=== PATIENT | male | born 1950 | race Caucasian/White ===

== ENCOUNTER 2023-08-23 17:29 | Inpatient (IN) | payer OTHER, MEDICAID ==
[2023-08-23 19:29] LABS: #Basophils 0.04 10x3/uL (0.0-0.2); %Basophils 0.7 % (0.0-1.0); %Lymphocytes 20.3 % (21.0-51.0); %Monocytes 10.6 % (0.0-10.0); %Neutrophils 66.1 % (42.0-75.0); Hematocrit 29.2 % (42.0-52.0); Hemoglobin 9.4 g/dL (14.0-18.0); Mean Corpuscular HGB CONC 32.2 g/dL (32.0-36.0); Mean Corpuscular Hemoglobin 30.9 pg (27.0-31.0); Mean Corpuscular Volume 96.1 fL (78.0-98.0); Mean Platelet Volume 10.6 fL (7.4-10.4); Platelet Count 182 10x3/uL (130-400); Red Blood Cell (RBC) Count 3.04 mill/uL (4.70-6.10)
[2023-08-23 19:42] LABS: ALT (SGPT) 7 U/L (8-55); AST (SGOT) 16 U/L (5-34); Albumin 4.1 g/dL (3.4-4.8); Alkaline Phosphatase 69 U/L (40-110); Anion Gap 19 mmol/L (10-20); BUN (Urea Nitrogen) 66 mg/dL (8.4-25.7); Bilirubin, Total 0.5 mg/dL (0.2-1.2); Calc. Creatinine Clearance 0 mL/min (70-130); Calcium 9.7 mg/dL (7.8-10.44); Carbon Dioxide 10 mmol/L (23-31); Chloride 118 mmol/L (98-107); Estimated GFR 8; Globulin 3.5 g/dL (2.4-3.5); Glucose 107 mg/dL (83-110); Magnesium 2.2 mg/dL (1.6-2.6); Potassium 5.4 mmol/L (3.5-5.1); Protein, Total 7.6 g/dL (5.8-8.1); Sodium 142 mmol/L (136-145)
[2023-08-23 19:47] LABS: Troponin I 0.017 ng/mL (< 0.028)
[2023-08-23 20:07] LABS: Bacteria/HPF None Seen HPF (None Seen); Bilirubin Negative (Negative); Blood, Urine Negative (Negative); CAUTI Indications for Culture Acute Hematuria; Clarity Clear (Clear); Glucose, Urine (Dipstick) Normal (Negative); Ketone, Urine Negative (Negative); Leukocyte 75 Leu/uL (Negative); Nitrite Negative (Negative); Protein, Urine (Dipstick) 20 mg/dL (Neg-Trace); RBC/HPF 0-3 HPF (0-3); Squamous Epithelial 0-3 HPF (0-3); Urobilinogen Normal mg/dL (Less than 2)
[2023-08-23 20:23] LABS: Urine Culture Reflex No No
[2023-08-23] MEDS ORDERED: Acetaminophen 325 MG TAB PO PRN (20:29)
[2023-08-23] MEDS ORDERED: Ondansetron PF 4 MG/2 ML Vial IVP PRN (20:29)
[2023-08-23 22:16] VITALS: BMI 21.9
[2023-08-23] MEDS: Sodium Bicarbonate 150 MEQ in Dextrose 5% in Water 1,000 ML IV SCH (22:18)
[2023-08-23] MEDS: LOKELMA 10 GM PACKET PO SCH (22:18)
[2023-08-23] MEDS: Atorvastatin Calcium 20 MG TAB PO SCH (23:35)
[2023-08-23] MEDS: EPOETIN ALFA-EPBX (ESRD) 10,000 UNITS/ML VIAL SC SCH (23:35)
[2023-08-23 23:42] LABS: Base Excess -12.5 mEq/L (-2.0 to +3.0); Calcium, Ionized (venous) 1.16 mmol/L (1.16-1.32); Chloride (VBG) 114 mmol/L (98-106); Hematocrit-VBG 28 % (42.0-52.0); Hemoglobin (Hb) 9.6 g/dL (12.6-17.4); Potassium (VBG) 5.67 mmol/L (3.70-5.30); Sodium 141 mmol/L (133-146); pH (venous) 7.291 (7.32-7.43)
[2023-08-23 23:43] LABS: Actual Bicarbonate (HCO3v) 12.7 mEq/L (22-28)
[2023-08-24 04:10] LABS: #Basophils Less than 0.03 10x3/uL (0.0-0.2); %Basophils 0.5 % (0.0-1.0); %Eosinophils 2.3 % (0.0-10.0); %Monocytes 11.4 % (0.0-10.0); %Neutrophils 58.8 % (42.0-75.0); Hematocrit 25.4 % (42.0-52.0); Hemoglobin 8.4 g/dL (14.0-18.0); Mean Corpuscular HGB CONC 33.1 g/dL (32.0-36.0); Mean Corpuscular Hemoglobin 30.8 pg (27.0-31.0); Mean Platelet Volume 10.2 fL (7.4-10.4); Platelet Count 132 10x3/uL (130-400); RBC Distribution Width 14.7 % (11.5-14.5); Red Blood Cell (RBC) Count 2.73 mill/uL (4.70-6.10)
[2023-08-24 04:28] LABS: Phosphorus 5.1 mg/dL (2.3-4.7)
[2023-08-24 04:31] LABS: Anion Gap 18 mmol/L (10-20); BUN (Urea Nitrogen) 64 mg/dL (8.4-25.7); Calc. Creatinine Clearance 9 mL/min (70-130); Calcium 8.9 mg/dL (7.8-10.44); Carbon Dioxide 15 mmol/L (23-31); Chloride 115 mmol/L (98-107); Estimated GFR 8; Glucose 101 mg/dL (83-110); Iron 59 ug/dL (65-175); Iron Binding Capacity, Total 228 mcg/dL (261-462); Magnesium 2.1 mg/dL (1.6-2.6); Potassium 4.7 mmol/L (3.5-5.1); Sodium 143 mmol/L (136-145)
[2023-08-24 05:26] LABS: Creatinine, Urine 54.13 mg/dL (63-166)
[2023-08-24] MEDS: Amlodipine 5 MG TAB PO SCH (09:16)
[2023-08-25 05:59] LABS: Anion Gap 17 mmol/L (10-20); BUN (Urea Nitrogen) 53 mg/dL (8.4-25.7); Calc. Creatinine Clearance 10 mL/min (70-130); Carbon Dioxide 23 mmol/L (23-31); Chloride 107 mmol/L (98-107); Estimated GFR 9; Glucose 125 mg/dL (83-110); Magnesium 1.8 mg/dL (1.6-2.6); Potassium 3.8 mmol/L (3.5-5.1); Sodium 143 mmol/L (136-145)
[2023-08-25 06:19] LABS: #Basophils Less than 0.03 10x3/uL (0.0-0.2); %Basophils 0.3 % (0.0-1.0); %Lymphocytes 24.9 % (21.0-51.0); %Monocytes 10.9 % (0.0-10.0); %Neutrophils 62.4 % (42.0-75.0); Hematocrit 28.4 % (42.0-52.0); Hemoglobin 9.6 g/dL (14.0-18.0); Mean Corpuscular HGB CONC 33.8 g/dL (32.0-36.0); Mean Corpuscular Volume 91.6 fL (78.0-98.0); Mean Platelet Volume 10.1 fL (7.4-10.4); Platelet Count 139 10x3/uL (130-400); RBC Distribution Width 14.6 % (11.5-14.5)
[2023-08-25] MEDS: Tamsulosin HCl 0.4 MG CAP PO SCH (09:45)
[2023-08-25] MEDS: Sodium Chloride 0.45% 1,000 ML IV SCH (09:46)
[2023-08-26 05:36] LABS: #Basophils Less than 0.03 10x3/uL (0.0-0.2); %Basophils 0.2 % (0.0-1.0); %Eosinophils 1.2 % (0.0-10.0); %Lymphocytes 27.5 % (21.0-51.0); %Monocytes 10.1 % (0.0-10.0); %Neutrophils 60.7 % (42.0-75.0); Hematocrit 27.4 % (42.0-52.0); Hemoglobin 9.2 g/dL (14.0-18.0); Mean Corpuscular HGB CONC 33.6 g/dL (32.0-36.0); Mean Corpuscular Hemoglobin 31.1 pg (27.0-31.0); Mean Corpuscular Volume 92.6 fL (78.0-98.0); Mean Platelet Volume 9.7 fL (7.4-10.4); Platelet Count 131 10x3/uL (130-400); RBC Distribution Width 14.2 % (11.5-14.5); Red Blood Cell (RBC) Count 2.96 mill/uL (4.70-6.10)
[2023-08-26 06:10] LABS: Anion Gap 16 mmol/L (10-20); BUN (Urea Nitrogen) 44 mg/dL (8.4-25.7); Calc. Creatinine Clearance 12 mL/min (70-130); Calcium 8.2 mg/dL (7.8-10.44); Carbon Dioxide 20 mmol/L (23-31); Chloride 106 mmol/L (98-107); Estimated GFR 12; Glucose 112 mg/dL (83-110); Potassium 3.1 mmol/L (3.5-5.1); Sodium 139 mmol/L (136-145)
[2023-08-26] MEDS: Potassium Chloride 20 MEQ TAB PO SCH (09:24)
[2023-08-26] MEDS: Sodium Chloride 0.45% 1,000 ML IV SCH (12:14)
[2023-08-26 12:46] LABS: ANA Symphony (Qualitative) Negative (Negative); ANA Symphony (Quantitative) 0.3 Ratio (< 0.7 Negative); dsDNA IgG Antibody 1.7 IU/mL (<10 Negative)
[2023-08-27 04:28] LABS: #Basophils Less than 0.03 10x3/uL (0.0-0.2); %Basophils 0.2 % (0.0-1.0); %Eosinophils 2.9 % (0.0-10.0); %Lymphocytes 31.8 % (21.0-51.0); %Monocytes 12.5 % (0.0-10.0); %Neutrophils 52.2 % (42.0-75.0); Hematocrit 26.7 % (42.0-52.0); Hemoglobin 8.8 g/dL (14.0-18.0); Mean Corpuscular Hemoglobin 30.8 pg (27.0-31.0); Mean Corpuscular Volume 93.4 fL (78.0-98.0); Mean Platelet Volume 10.2 fL (7.4-10.4); Platelet Count 139 10x3/uL (130-400); RBC Distribution Width 14.1 % (11.5-14.5); Red Blood Cell (RBC) Count 2.86 mill/uL (4.70-6.10)
[2023-08-27 04:50] LABS: ALT (SGPT) 6 U/L (8-55); AST (SGOT) 16 U/L (5-34); Albumin 3.2 g/dL (3.4-4.8); Alkaline Phosphatase 61 U/L (40-110); Anion Gap 15 mmol/L (10-20); BUN (Urea Nitrogen) 46 mg/dL (8.4-25.7); Bilirubin, Total 0.3 mg/dL (0.2-1.2); Calc. Creatinine Clearance 14 mL/min (70-130); Calcium 8.4 mg/dL (7.8-10.44); Carbon Dioxide 18 mmol/L (23-31); Chloride 110 mmol/L (98-107); Estimated GFR 15; Globulin 3.5 g/dL (2.4-3.5); Glucose 94 mg/dL (83-110); Potassium 3.8 mmol/L (3.5-5.1); Protein, Total 6.7 g/dL (5.8-8.1); Sodium 139 mmol/L (136-145)
[2023-08-27] MEDS: Ergocalciferol 1.25 MG(50,000 UNITS) CAP PO SCH (10:44)
[2023-08-27] MEDS ORDERED: Guaifenesin DM 100-10/5 ML UDCUP PO PRN (11:09)
[2023-08-27] MEDS ORDERED: Ipratropium/Albuterol 3 ML NEB NEB PRN (11:09)
[2023-08-27] MEDS: Benzonatate 100 MG CAP PO SCH ×2 (12:47→15:30)
[2023-08-28 07:03] LABS: ALT (SGPT) 9 U/L (8-55); AST (SGOT) 20 U/L (5-34); Albumin 3.4 g/dL (3.4-4.8); Alkaline Phosphatase 56 U/L (40-110); Anion Gap 16 mmol/L (10-20); BUN (Urea Nitrogen) 45 mg/dL (8.4-25.7); Bilirubin, Total 0.4 mg/dL (0.2-1.2); Calc. Creatinine Clearance 16 mL/min (70-130); Carbon Dioxide 16 mmol/L (23-31); Chloride 112 mmol/L (98-107); Estimated GFR 18; Globulin 3.7 g/dL (2.4-3.5); Glucose 91 mg/dL (83-110); Potassium 4.3 mmol/L (3.5-5.1); Protein, Total 7.1 g/dL (5.8-8.1); Sodium 140 mmol/L (136-145)
[2023-08-28 08:43] LABS: #Basophils 0.03 10x3/uL (0.0-0.2); %Basophils 0.5 % (0.0-1.0); %Eosinophils 3.8 % (0.0-10.0); %Lymphocytes 26.8 % (21.0-51.0); %Monocytes 12.9 % (0.0-10.0); %Neutrophils 55.8 % (42.0-75.0); Hematocrit 28.6 % (42.0-52.0); Hemoglobin 9.3 g/dL (14.0-18.0); Mean Corpuscular HGB CONC 32.5 g/dL (32.0-36.0); Mean Corpuscular Hemoglobin 30.6 pg (27.0-31.0); Mean Corpuscular Volume 94.1 fL (78.0-98.0); Mean Platelet Volume 10.7 fL (7.4-10.4); Platelet Count 166 10x3/uL (130-400); RBC Distribution Width 14.2 % (11.5-14.5); Red Blood Cell (RBC) Count 3.04 mill/uL (4.70-6.10)
[2023-08-28] MEDS: Sodium Bicarbonate Tab 325 MG TAB PO SCH (08:55)
[2023-08-28] MEDS: Sodium Bicarbonate 150 MEQ in Dextrose 5% in Water 1,000 ML IV SCH (11:05)
[2023-08-29 07:26] LABS: Anion Gap 14 mmol/L (10-20); BUN (Urea Nitrogen) 46 mg/dL (8.4-25.7); Calc. Creatinine Clearance 18 mL/min (70-130); Carbon Dioxide 21 mmol/L (23-31); Chloride 107 mmol/L (98-107); Potassium 4.1 mmol/L (3.5-5.1); Sodium 138 mmol/L (136-145)
[2023-08-29 07:27] LABS: ALT (SGPT) 14 U/L (8-55); AST (SGOT) 25 U/L (5-34); Albumin 3.4 g/dL (3.4-4.8); Alkaline Phosphatase 57 U/L (40-110); Bilirubin, Total 0.4 mg/dL (0.2-1.2); Calcium 9.1 mg/dL (7.8-10.44); Estimated GFR 22; Globulin 3.7 g/dL (2.4-3.5); Glucose 91 mg/dL (83-110); Protein, Total 7.1 g/dL (5.8-8.1)
[2023-08-29 11:22] VITALS: BP 113/66; TEMP 98
== END 2023-08-29 18:38 | disposition home or self-care (01) | DRG 683 ==
LOC: ERS 17:29 → 2NO 20:31 → T4-A 08-27 14:29
PROVIDERS: ADMIT Internal Medicine; ATTEND Internal Medicine
DX: N17.9 Acute kidney failure, unspecified (principal); E87.20 Acidosis, unspecified; N40.1 Benign prostatic hyperplasia with lower urinary tract symptoms; N13.30 Unspecified hydronephrosis; N18.4 Chronic kidney disease, stage 4 (severe); E87.5 Hyperkalemia; D63.8 Anemia in other chronic diseases classified elsewhere; R55 Syncope and collapse; D50.9 Iron deficiency anemia, unspecified; I12.9 Hypertensive chronic kidney disease with stage 1 through stage 4 chronic kidney disease, or unspecified chronic kidney disease; R33.9 Retention of urine, unspecified; Z88.2 Allergy status to sulfonamides; Z79.899 Other long term (current) drug therapy; Z85.828 Personal history of other malignant neoplasm of skin; E78.00 Pure hypercholesterolemia, unspecified
CPT/HCPCS: 36415; 70450; 76770; 80048; 80053; 81001; 82306; 82570; 82728; 82805; 83540; 83550; 83735; 83970; 84100; 84156; 85025; 86038; 86225; 86850; 86900; 86901; 93005; 93306; 96374; J7070; Q5105

== ENCOUNTER 2023-11-18 09:39 | Outpatient (CLI) | payer OTHER, MEDICARE ==
[2023-11-18 10:51] LABS: #Basophils 0.04 10x3/uL (0.0-0.2); %Basophils 0.5 % (0.0-1.0); %Eosinophils 1.1 % (0.0-10.0); %Lymphocytes 24.5 % (21.0-51.0); %Monocytes 7.4 % (0.0-10.0); %Neutrophils 66.2 % (42.0-75.0); Hemoglobin 12.8 g/dL (14.0-18.0); Mean Corpuscular HGB CONC 32.8 g/dL (32.0-36.0); Mean Corpuscular Hemoglobin 30.7 pg (27.0-31.0); Mean Corpuscular Volume 93.5 fL (78.0-98.0); Platelet Count 165 10x3/uL (130-400); RBC Distribution Width 12.6 % (11.5-14.5); Red Blood Cell (RBC) Count 4.17 mill/uL (4.70-6.10)
[2023-11-18 11:04] LABS: Prothrombin Time 13.6 sec (12.0-14.7)
[2023-11-18 11:05] LABS: Anion Gap 14 mmol/L (10-20); BUN (Urea Nitrogen) 29 mg/dL (8.4-25.7); Calc. Creatinine Clearance 0 mL/min (70-130); Calcium 9.8 mg/dL (7.8-10.44); Carbon Dioxide 18 mmol/L (23-31); Chloride 110 mmol/L (98-107); Estimated GFR 43; Glucose 100 mg/dL (83-110); Potassium 4.3 mmol/L (3.5-5.1); Sodium 138 mmol/L (136-145)
== END 2023-11-18 09:40 | disposition home or self-care (01) ==
LOC: LABBT 09:39
PROVIDERS: ATTEND Urology
DX: Z01.818 Encounter for other preprocedural examination (principal); N40.1 Benign prostatic hyperplasia with lower urinary tract symptoms
CPT/HCPCS: 80048; 85025; 85610; 85730; 93005; 93010